=== PATIENT | female | born 1980 | race Caucasian/White ===

== ENCOUNTER 2016-09-07 18:12 | Outpatient (CLI) | payer OTHER | END 2016-09-07 18:13 | disposition critical access hospital (66) | LOC: EMS 18:12 | PROVIDERS: ATTEND Surgery | DX: M54.9 Dorsalgia, unspecified (principal) | CPT/HCPCS: A0425; A0427 ==

== ENCOUNTER 2016-09-07 18:46 | Emergency (ER) | payer OTHER ==
[2016-09-07] MEDS ORDERED: DEXAMETHASONE 10 MG/ML VIAL IVP STA (20:34)
[2016-09-07] MEDS ORDERED: KETOROLAC 60 MG/2 ML VIAL IVP STA (20:34)
[2016-09-07] MEDS ORDERED: diazePAM INJ 5 MG/ML SYRINGE IVP STA (20:35)
[2016-09-07] MEDS ORDERED: DEXAMETHASONE 10 MG/ML VIAL ONE (20:47)
[2016-09-07] MEDS ORDERED: KETOROLAC 30 MG/ML VIAL ONE (20:47)
[2016-09-07] MEDS ORDERED: diazePAM INJ 5 MG/ML SYRINGE ONE (20:47)
[2016-09-07] MEDS ORDERED: HYDROmorphone 1 MG/ML SYRINGE IVP STA (21:23)
[2016-09-07] MEDS ORDERED: HYDROmorphone 1 MG/ML SYRINGE ONE (21:35)
[2016-09-07] MEDS ORDERED: oxyCODONE/ACET 5/325 Prepack 4 PO STA (22:01)
--- NOTE | 2016-09-07 22:03 | ED Physician Documentation ---
PD HPI BACK PAIN - Stated complaint Stated Complaint: BACK PAIN - Chief complaint Chief Complaint: Back Pain - History obtained from History obtained from: Patient - History of Present Illness Timing - onset: Today (just prior to arrival.) Location: Lower Quality: Pain Associated symptoms: No: Fever, Weakness, Numbness, Incontinent of urine - Treatment prior to arrival Treatment prior to arrival: Medics administered fentanyl 100 g IV. - Additional information Additional information: The patient is a 35-year-old female who presents with low back pain that started suddenly today after bending over. The pain was quite severe, prompting her to call 911. She reports a similar episode occurring 3 days ago, but resolving spontaneously. She also reports history of similar symptoms about 12 years ago, but not this bad. She denies fever, numbness, weakness, or urinary incontinence. Medics administered fentanyl 100 g IV prior to arrival, and that has decreased the patient's severity of pain. Past history is significant for right hip surgery 6 weeks ago. Review of Systems Constitutional: denies: Fever Nose: denies: Congestion Throat: denies: Sore throat Cardiac: denies: Chest pain / pressure Respiratory: denies: Dyspnea, Cough GI: denies: Abdominal Pain, Nausea, Vomiting : denies: Dysuria, Incontinent Skin: denies: Rash Musculoskeletal: reports: Back pain. denies: Neck pain Neurologic: denies: Focal weakness, Numbness, Headache PD PAST MEDICAL HISTORY - Past Medical History Past Medical History: Yes Cardiovascular: None Respiratory: None Neuro: None Endocrine/Autoimmune: HyPOthyroidism - Past Surgical History Past Surgical History: Yes Ortho: Other (Right hip surgery, involving the labral head.) - Present Medications Home Medications: Ambulatory Orders Medication Instructions Recorded Confirmed Cyclobenzaprine [Flexeril] 10 mg PO TID PRN #20 tablet 09/07/16 HYDROcod/ACETAM 5/325 [[place] 5/325] 1 - 2 ea PO Q6H PRN #20 tablet 09/07/16 Levothyroxine Sodium 125 mcg PO DAILY 09/07/16 09/07/16 Trazodone HCl 50 mg PO DAILY 09/07/16 09/07/16 - Allergies Allergies/Adverse Reactions: Allergies Allergy/AdvReac Type Severity Reaction Status Date / Time Penicillins Allergy Unknown Verified 09/07/16 18:53 Sulfa (Sulfonamide Allergy Unknown Verified 09/07/16 18:53 Antibiotics) - Social History Does the pt smoke?: No Smoking Status: Never smoker PD ED PE NORMAL - Vitals Vital signs reviewed: Yes (normal) - General General: Alert and oriented X 3, Well developed/nourished - HEENT HEENT: Atraumatic, EOMI, Pharynx benign - Neck Neck: No bony TTP, No adenopathy, No JVD - Cardiac Cardiac: RRR, No murmur - Respiratory Respiratory: No respiratory distress, Clear bilaterally - Abdomen Abdomen: Soft, Non tender - Back Back: No CVA TTP, Other (Tenderness to palpation in the lower lumbar region, more on the right than the left. No tenderness to palpation along the spinous processes.) - Derm Derm: No rash - Extremities Extremities: No edema, No calf tenderness / cord - Neuro Neuro: Alert and oriented X 3, No motor deficit, No sensory deficit Results - Vitals Vitals: Oxygen O2 Source Room air PD MEDICAL DECISION MAKING - ED course Complexity details: reviewed results, re-evaluated patient, considered differential, d/w patient, d/w family ED course: The patient's presentation is significant for low back strain. There is no clinical evidence to suggest epidural abscess, cauda equina syndrome, and I doubt spinal stenosis. Treatment in the emergency department included administration of ketorolac 30 mg IV, diazepam 5 mg IV, and dexamethasone 10 mg IV. Subsequently hydromorphone 1 mg was administered IV. At the time of discharge the patient's pain is significantly improved. She is being discharged with prescriptions for Flexeril and for Vicodin, 20 tablets. I discussed with her and family members symptomatic treatment, outpatient follow- up, as well as potentially worrisome signs or symptoms that should prompt reevaluation in the emergency department. Departure - Departure Disposition: 01 Home, Self Care Clinical Impression: Low back pain Qualifiers: Chronicity: acute Back pain laterality: bilateral Sciatica presence: without sciatica Qualified Code(s): M54.5 - Low back pain Condition: Stable Instructions: ED Low Back Pain Injury Follow-Up: Isma Matos MD [Primary Care Provider] - Prescriptions: Cyclobenzaprine [Flexeril] 10 mg PO TID PRN #20 tablet PRN Reason: Spasms HYDROcod/ACETAM 5/325 [[place] 5/325] 1 - 2 ea PO Q6H PRN #20 tablet PRN Reason: Pain Comments: Apply ice pack to your lower back intermittently for the next 3 or 4 days. You can use ibuprofen, up to 800 mg 3 times daily for the anti-inflammatory effect. You can use Vicodin as prescribed if needed for pain. You can use Flexeril as prescribed if needed for muscle spasms. Let pain be your guide to activity level. Follow-up with your primary physician. Call to schedule the next available appointment. Return to the emergency department if you develop increasing back pain, fever, numbness or weakness, urinary incontinence, or otherwise worsening symptoms. Discharge Date/Time: 09/07/16 22:31
[2016-09-07] MEDS ORDERED: oxyCODONE/ACET 5/325 Prepack 4 PO ONE (22:15)
[2016-09-07 22:32] VITALS: BP 107/68
== END 2016-09-07 22:31 | disposition home or self-care (01) ==
LOC: EDUNIT# → ED 18:46
DX: M54.5 Low back pain (principal)
CPT/HCPCS: 96374; 96375; 99283; 99284; J1170

== ENCOUNTER 2018-03-10 13:32 | Emergency (ER) | payer OTHER ==
[2018-03-10] MEDS ORDERED: DEXAMETHASONE 10 MG/ML VIAL PO STA (14:22)
[2018-03-10] MEDS ORDERED: HYDROmorphone 1 MG/ML CARPUJECT IM STA (14:22)
[2018-03-10] MEDS ORDERED: PROMETHAZINE 25 MG/1 ML VIAL IM STA (14:22)
--- NOTE | 2018-03-10 14:23 | ED Physician Documentation ---
PD HPI BACK PAIN - Stated complaint Stated Complaint: LOW BACK PX - Chief complaint Chief Complaint: Back Pain - History obtained from History obtained from: Patient - History of Present Illness Timing - onset: How many weeks ago (1) Timing - details: Still present Location: Lower Quality: Pain Worsened by: Movement, Twisting Similar symptoms before: Diagnosis (History of a similar episode 1 1/2 years ago.) - Additional information Additional information: The patient is a 37-year-old female with a history of suspected autoimmune arthritis, who presents with low back pain that has been ongoing for the past week. It became worse today after she felt a popping in her lower back when getting out of bed this morning. She denies any specific injury. The pain is worse with walking or with movement. She denies fever, urinary incontinence, numbness or weakness. Review of her medical records reveals emergency department visit with similar symptoms in September 2016. Review of Systems Constitutional: denies: Fever Nose: denies: Congestion Throat: denies: Sore throat Cardiac: denies: Chest pain / pressure Respiratory: denies: Dyspnea, Cough GI: denies: Abdominal Pain, Nausea, Vomiting : denies: Dysuria, Incontinent Skin: denies: Rash Musculoskeletal: reports: Back pain. denies: Extremity pain Neurologic: denies: Focal weakness, Numbness, Headache PD PAST MEDICAL HISTORY - Past Medical History Past Medical History: Yes Cardiovascular: None, High cholesterol Respiratory: None Endocrine/Autoimmune: HyPOthyroidism, Other Musculoskeletal: Fibromyalgia, Chronic back pain Other Past Medical History: autoimmune arthritis, hashimotos arthritis, herniated disc - Past Surgical History Past Surgical History: Yes Ortho: Other - Present Medications Home Medications: Ambulatory Orders Medication Instructions Recorded Confirmed Levothyroxine Sodium 100 mcg PO DAILY 09/07/16 09/07/16 Trazodone HCl 25 mg PO DAILY 09/07/16 09/07/16 Cyclobenzaprine [Flexeril] 10 mg PO TID PRN #20 tablet 03/10/18 Hydrocodone/Acetaminophen 1 - 2 each PO Q6H PRN #14 tablet 03/10/18 [Hydrocodon-Acetaminophen 5-325] traMADol [Ultram] 50 mg PO Q4-6H 03/10/18 03/10/18 - Allergies Allergies/Adverse Reactions: Allergies Allergy/AdvReac Type Severity Reaction Status Date / Time etodolac Allergy Rash Verified 03/10/18 13:39 Penicillins Allergy Unknown Verified 09/07/16 18:53 pregabalin [From Lyrica] Allergy Edema Verified 03/10/18 13:39 Sulfa (Sulfonamide Allergy Unknown Verified 09/07/16 18:53 Antibiotics) - Social History Does the pt smoke?: No Smoking Status: Never smoker Does the pt drink ETOH?: No Does the pt have substance abuse?: No - Immunizations Immunizations are current?: Yes PD ED PE NORMAL - Vitals Vital signs reviewed: Yes (Normal) - General General: Alert and oriented X 3, Well developed/nourished - HEENT HEENT: Atraumatic - Neck Neck: No bony TTP - Cardiac Cardiac: RRR - Respiratory Respiratory: No respiratory distress, Clear bilaterally - Abdomen Abdomen: Soft, Non tender - Back Back: No CVA TTP, Other (Tenderness to palpation in the paralumbar musculature bilaterally, without tenderness to palpation along the spinous processes.) - Derm Derm: No rash - Extremities Extremities: No edema, No calf tenderness / cord, Other (Straight leg raise test is negative bilaterally.) - Neuro Neuro: Alert and oriented X 3, No motor deficit, No sensory deficit, Other (Deep tendon reflexes are 2+ and equal bilaterally at the patellar and Achilles tendons.) Results - Vitals Vitals: Oxygen O2 Source Room air PD MEDICAL DECISION MAKING - ED course Complexity details: reviewed old records, re-evaluated patient, considered differential, d/w patient ED course: The patient's presentation is most consistent with acute lumbar strain. There is no clinical evidence to suggest epidural abscess, cauda equina syndrome, or spinal stenosis. Treatment in the emergency department included administration of dexamethasone 10 mg orally, hydromorphone 1 mg IM, and Phenergan 12.5 mg IM. Her pain improved with the above treatment. She is being discharged with prescriptions for Flexeril, and for Vicodin, tablets. I discussed with her the expected course of illness, symptomatic treatment and outpatient follow-up, as well as potentially worrisome signs or symptoms that should prompt reevaluation in the emergency department. Departure - Departure Disposition: 01 Home, Self Care Clinical Impression: Back pain Qualifiers: Back pain location: low back pain Chronicity: acute Back pain laterality: bilateral Sciatica presence: without sciatica Qualified Code(s): M54.5 - Low back pain Condition: Stable Instructions: ED Low Back Pain Injury Follow-Up: Isma Matos MD [Primary Care Provider] - Prescriptions: Cyclobenzaprine [Flexeril] 10 mg PO TID PRN #20 tablet PRN Reason: Spasms Hydrocodone/Acetaminophen [Hydrocodon-Acetaminophen 5-325] 1 - 2 each PO Q6H PRN #14 tablet PRN Reason: pain Comments: Apply ice pack to your lower back intermittently for the next 3 or 4 days. You can use ibuprofen, up to 800 mg 3 times daily for its anti-inflammatory effect. You can use Flexeril if needed for muscle spasms. You can use Vicodin as prescribed if needed for pain. Let pain be your guide to activity level. Follow-up with your primary physician within 2 weeks. Call to schedule an appointment. Return to the emergency department if you develop increasing pain, numbness or weakness, urinary incontinence, or otherwise worsening symptoms. Discharge Date/Time: 03/10/18 15:24
[2018-03-10 15:24] VITALS: BP 105/70
== END 2018-03-10 15:24 | disposition home or self-care (01) ==
LOC: ED 13:32
DX: M54.5 Low back pain (principal); E78.00 Pure hypercholesterolemia, unspecified
CPT/HCPCS: 96372; 99283; J1170

== ENCOUNTER 2018-04-08 10:17 | Outpatient (CLI) | payer OTHER ==
--- NOTE | 2018-04-09 14:59 | MRI Report ---
Reason: LOW BACK PAIN,SCIATICA,LEG WEAKNESS,PARTIAL FOOT D Procedure Date: 04/08/2018 Accession Number: [id number] / [id number] Procedure: MRI - Lumbar Spine W/O CPT Code: FULL RESULT: EXAM: MRI LUMBAR SPINE WITHOUT CONTRAST EXAM DATE: 04/08/2018 10:37 AM. CLINICAL HISTORY: LOW BACK PAIN,SCIATICA,LEG WEAKNESS,PARTIAL FOOT D. COMPARISON: None. TECHNIQUE: Multiplanar, multisequence T1-weighted and fluid-sensitive sequences of the lumbar spine from T12 to S1 without contrast. Other: None. FINDINGS: Spinal Canal: The conus terminates at T12-L1. The conus medullaris and cauda equina are unremarkable. Alignment: No scoliosis or spondylolisthesis. Bone Marrow: Five [id number] lumbar vertebral bodies are assumed. No gross fractures or bone lesions. No bone marrow replacement. Rounded 13 mm typical hemangioma in the right lateral L2 vertebrae. Few small focus of focal T1 hyperintense marrow fat in the superior L3, left inferior L4 vertebrae. Disk Levels/Facets: T12-L1: Disk desiccation and posterior central annular fissure. No significant canal or foraminal narrowing. L1-L2: Unremarkable. L2-L3: Unremarkable. L3-L4: Unremarkable. L4-L5: Unremarkable. L5-S1: Unremarkable. Musculature: Normal. No edema or fatty atrophy. Other: The partially visualized retroperitoneum is unremarkable. IMPRESSION: Minimal degenerative changes at T12-L1. Otherwise unremarkable. Comment: The following findings are so common in adults without low back pain that while we report their presence, they must be interpreted with caution and in the context of the clinical situation. (Reference Susyvik et al, Spine 2001) Prevalence of findings in patients without low back pain: Disk degeneration (any evidence): 92% Disk desiccation/T2 signal loss: 83% Disk height loss: 56% Disk bulge: 64% Disk protrusion: 32% Annular tear/high intensity zone: 38% RADIA
== END 2018-04-08 10:18 | disposition home or self-care (01) ==
LOC: DI 10:17
PROVIDERS: ATTEND Family Medicine
DX: M51.15 Intervertebral disc disorders with radiculopathy, thoracolumbar region (principal); M21.379 Foot drop, unspecified foot
CPT/HCPCS: 72148

== ENCOUNTER 2018-08-04 19:34 | Outpatient (CLI) | payer OTHER ==
--- NOTE | 2018-08-05 00:05 | Ultrasound Report ---
Reason: MURPHYS POSITIVE,NAUSEA,LLQ PAIN,ENDOMETRIOSIS, UN Procedure Date: 08/04/2018 Accession Number: [id number] / [id number] Procedure: US - Abdomen Complete CPT Code: FULL RESULT: EXAM: ABDOMEN ULTRASOUND EXAM DATE: 08/04/2018 08:50 PM. CLINICAL HISTORY: MURPHYS POSITIVE,NAUSEA,LLQ PAIN,ENDOMETRIOSIS, UN. COMPARISON: None. TECHNIQUE: Real-time scanning was performed with static images obtained. FINDINGS: Liver: Normal in size and echotexture. 17.4 there is a small echogenic focus in the caudate lobe which measures 8 mm x 7 mm x 8 mm. This is close to the inferior vena cava. This may represent a small hemangioma. Cm. Main portal vein flow: Hepatopetal. Gallbladder: Normal. No stones, wall thickening, or sonographic Araujo's sign. Biliary System: Common bile duct measures 2 mm. No intrahepatic or extrahepatic ductal dilatation. Pancreas: Visualized portion is unremarkable. Kidneys: Right: 10.3 cm longitudinally. Normal. No contour-deforming mass, stones, or hydronephrosis. Left: 10.3 cm longitudinally. Normal. No contour-deforming mass, stones, or hydronephrosis. Spleen: 11.4 x 4.4 x 9.1 cm. Normal in size and echotexture. Aorta and Inferior Vena Cava: Unremarkable. Other: None. IMPRESSION: 1. No definite findings to explain clinical symptoms. 2. Small echogenic focus in the caudate lobe of the liver likely representing a small hemangioma. RADIA
== END 2018-08-04 19:35 | disposition home or self-care (01) ==
LOC: DI 19:34
PROVIDERS: ATTEND Naturopath
DX: R10.32 Left lower quadrant pain (principal); R11.0 Nausea; R14.0 Abdominal distension (gaseous); R19.8 Other specified symptoms and signs involving the digestive system and abdomen; N80.9 Endometriosis, unspecified
CPT/HCPCS: 76700

== ENCOUNTER 2018-08-21 11:46 | Outpatient (CLI) | payer OTHER ==
[2018-08-21 12:06] LABS: BILIRUBIN,URINE NEGATIVE (NEGATIVE); GLUCOSE, URINE (UA) NEGATIVE (NEGATIVE); KETONES,URINE (UA) NEGATIVE (NEGATIVE); LEUKOCYTE ESTERASE, URINE NEGATIVE (NEGATIVE); NITRITE,URINE NEGATIVE (NEGATIVE); OCCULT BLOOD,URINE NEGATIVE (NEGATIVE); PROTEIN,URINE NEGATIVE (NEGATIVE); UROBILINOGEN,URINE 0.2 (NORMAL) E.U./dL (NORMAL)
[2018-08-21 12:11] LABS: CLARITY,URINE CLEAR (CLEAR)
== END 2018-08-21 11:47 | disposition home or self-care (01) ==
LOC: LAB 11:46
PROVIDERS: ATTEND Urology
DX: R35.0 Frequency of micturition (principal)
CPT/HCPCS: 81001; 81003

== ENCOUNTER 2019-06-29 16:56 | Outpatient (CLI) | payer OTHER ==
--- NOTE | 2019-06-29 17:51 | XRAY Report ---
Reason: TACHYCARDIA, SOB Procedure Date: 06/29/2019 Accession Number: [id number] / [id number] Procedure: XR - Chest 2 View X-Ray CPT Code: 43060 Addended Final Report FULL RESULT: EXAM: CHEST RADIOGRAPHY EXAM DATE: 06/29/2019 05:14 PM. CLINICAL HISTORY: TACHYCARDIA, SOB. COMPARISON: None. TECHNIQUE: 2 views. FINDINGS: Lungs/Pleura: No focal lung consolidation. No pleural effusion. No pneumothorax. Mediastinum: Cardiac silhouette size appears unremarkable. Other: Osseous structures and upper abdomen appear unremarkable. IMPRESSION: No focal lung consolidation or pleural effusions. RADIA The call report notification system was initiated by Dr. Mitchell Aguilra at 05:50 PM on 06/29/2019. ADDENDUM: 06/29/19 17:56 assistant auto center manager calling Negative result to provider at 5:56 PM on 06/29/2019.
== END 2019-06-29 16:57 | disposition home or self-care (01) ==
LOC: DI 16:56
PROVIDERS: ATTEND Nurse Practitioner Psychiatric/Mental Health
DX: R00.0 Tachycardia, unspecified (principal); R06.02 Shortness of breath; R05 Cough; J06.9 Acute upper respiratory infection, unspecified
CPT/HCPCS: 71046

== ENCOUNTER 2019-06-30 16:41 | Emergency (ER) | payer OTHER ==
[2019-06-30] MEDS ORDERED: ALBUTEROL NEB 2.5 MG/3 ML INH STA (17:04)
--- NOTE | 2019-06-30 17:06 | ED Physician Documentation ---
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 She noted some high heart rates and borderline pulse oximetry to 93% at home. No history of DVT or PE but she was referred in to rule that out. Chest x-ray done as an outpatient was negative yesterday as well as a coronavirus test.) Review of Systems Constitutional: denies: Fever, Chills Throat: reports: Reviewed and negative Cardiac: reports: Reviewed and negative Respiratory: reports: Reviewed and negative PD PAST MEDICAL HISTORY - Past Medical History Cardiovascular: None, High cholesterol Respiratory: None Endocrine/Autoimmune: HyPOthyroidism, Other Musculoskeletal: Fibromyalgia, Chronic back pain - Past Surgical History Past Surgical History: Yes Ortho: Other - Present Medications Home Medications: Ambulatory Orders Medication Instructions Recorded Confirmed Levothyroxine Sodium 112 mcg PO DAILY 09/07/16 09/07/16 Trazodone HCl 25 mg PO DAILY 09/07/16 09/07/16 Cyclobenzaprine [Flexeril] 10 mg PO TID PRN #20 tablet 03/10/18 Hydrocodone/Acetaminophen 1 - 2 each PO Q6H PRN #14 tablet 03/10/18 [Hydrocodon-Acetaminophen 5-325] traMADol [Ultram] 50 mg PO Q4-6H 03/10/18 03/10/18 Albuterol 2.5 mg INH Q4H PRN #30 neb 06/30/19 Amitriptyline [Elavil] 25 mg PO DAILY 06/30/19 06/30/19 Baclofen 10 mg PO TID 06/30/19 06/30/19 OXcarbazepine [Trileptal] 300 mg PO BID 06/30/19 06/30/19 diazePAM [Diazepam] 5 - 10 mg PO PRN PRN 06/30/19 06/30/19 guaiFENesin/CODEINE [Robitussin AC] 5 - 10 ml PO Q6H PRN #120 ml 06/30/19 - Allergies Allergies/Adverse Reactions: Allergies Allergy/AdvReac Type Severity Reaction Status Date / Time etodolac Allergy Rash Verified 06/30/19 16:44 nabumetone Allergy Unknown Verified 06/30/19 17:20 nortriptyline Allergy Rash Verified 06/30/19 17:20 Penicillins Allergy Unknown Verified 06/30/19 16:44 pregabalin [From Lyrica] Allergy Edema Verified 06/30/19 16:44 Sulfa (Sulfonamide Allergy Unknown Verified 06/30/19 16:44 Antibiotics) - Social History Does the pt smoke?: No Smoking Status: Never smoker Does the pt drink ETOH?: No Does the pt have substance abuse?: No - Immunizations Immunizations are current?: Yes PD ED PE NORMAL - Vitals Vital signs reviewed: Yes - General General: Alert and oriented X 3, No acute distress - Neck Neck: Supple, no meningeal sign, No bony TTP - Cardiac Cardiac: RRR, No murmur - Respiratory Respiratory: No respiratory distress, Other (Mild expiratory wheezing with occasional bronchitic coughing) - Extremities Extremities: No edema, No calf tenderness / cord Results - Vitals Vitals: Vital Signs - 24 hr 06/30/19 06/30/19 16:44 17:20 Temperature 36.9 C Heart Rate 104 H 96 Respiratory 20 16 Rate Blood Pressure 125/98 H O2 Saturation 100 Oxygen O2 Source Room air - EKG (time done) 1738 Rate: Rate (enter#) (90) Rhythm: NSR [place]: Normal Intervals: Normal [place] QRS: Normal Ischemia: Normal ST segments Computer interpretation: Agree with computer - Labs Labs: Laboratory Tests 06/30/19 06/30/19 06/30/19 17:15 17:15 17:15 WBC 7.4 RBC 4.54 Hgb 13.6 Hct 41.2 MCV 90.7 MCH 30.0 MCHC 33.0 RDW 13.8 Plt Count 285 MPV 9.9 Neut # (Auto) 3.7 Lymph # (Auto) 2.7 [place] # (Auto) 0.7 Eos # (Auto) 0.3 Baso # (Auto) 0.1 Absolute Nucleated RBC 0.00 Nucleated RBC % 0.0 D-Dimer 244.6 Sodium 134 L Potassium 3.7 Chloride 101 Carbon Dioxide 20 L Anion Gap 13.0 BUN 15 Creatinine 0.9 Estimated GFR (MDRD) 70 L Glucose 95 Calcium 9.1 PD MEDICAL DECISION MAKING - ED course ED course: 38-year-old woman with what seems like viral bronchitis sent here for rule out for PE. She seems relatively low risk with no symptoms that would really make PE high risk and a d-dimer was done and negative, with a low pretest probability I think this adequately rules her out. Departure - Departure Disposition: 01 Home, Self Care Clinical Impression: Viral bronchitis Condition: Good Record reviewed to determine appropriate education?: Yes Instructions: ED Bronchitis Asthmatic Prescriptions: Albuterol 2.5 mg INH Q4H PRN #30 neb PRN Reason: Wheezing guaiFENesin/CODEINE [Robitussin AC] 5 - 10 ml PO Q6H PRN #120 ml PRN Reason: Cough Comments: Return for new or worsening symptoms. Follow-up with your doctor next week. You can let them know that we did a d-dimer and it was negative, given the low pretest probability this rules out pulmonary embolism.
[2019-06-30 17:19] LABS: BASOPHILS # (AUTO) 0.1 10^3/uL (0.0-0.1); BASOPHILS % (AUTO) 0.7 %; EOSINOPHILS # (AUTO) 0.3 10^3/uL (0.0-0.7); EOSINOPHILS % (AUTO) 3.4 %; HGB - HEMOGLOBIN 13.6 g/dL (12.0-16.0); LYMPHOCYTES # (AUTO) 2.7 10^3/uL (1.5-3.5); LYMPHOCYTES % (AUTO) 35.8 %; MEAN CORPUSCULAR VOLUME 90.7 fL (81.0-99.0); MEAN PLATELET VOLUME 9.9 fL (7.9-10.8); MONOCYTES # (AUTO) 0.7 10^3/uL (0.0-1.0); MONOCYTES % (AUTO) 9.4 %; NEUTROPHILS # (AUTO) 3.7 10^3/uL (1.5-6.6); NEUTROPHILS % (AUTO) 50.4 %; PLT - PLATELET COUNT 285 10^3/uL (130-450); RED BLOOD COUNT 4.54 10^6/uL (4.20-5.40); RED CELL DISTRIBUTION WIDTH 13.8 % (12.0-15.0); WHITE BLOOD COUNT 7.4 x10^3/uL (4.8-10.8)
[2019-06-30 17:28] LABS: CALCIUM 9.1 mg/dL (8.5-10.3); CREATININE 0.9 mg/dL (0.4-1.0)
[2019-06-30 18:05] VITALS: BP 115/83
== END 2019-06-30 17:55 | disposition home or self-care (01) ==
LOC: ED 16:41
DX: J20.8 Acute bronchitis due to other specified organisms (principal); B97.89 Other viral agents as the cause of diseases classified elsewhere; M79.7 Fibromyalgia
CPT/HCPCS: 36415; 80048; 85025; 85379; 93005; 94640; 99282; 99283

== ENCOUNTER 2019-09-14 10:37 | Outpatient (CLI) | payer OTHER ==
[2019-09-14 15:33] LABS: BASOPHILS # (AUTO) 0.1 10^3/uL (0.0-0.1); BASOPHILS % (AUTO) 1.1 %; EOSINOPHILS # (AUTO) 0.1 10^3/uL (0.0-0.7); EOSINOPHILS % (AUTO) 2.2 %; HGB - HEMOGLOBIN 13.5 g/dL (12.0-16.0); LYMPHOCYTES # (AUTO) 1.8 10^3/uL (1.5-3.5); LYMPHOCYTES % (AUTO) 39.8 %; MEAN CORPUSCULAR HEMOGLOBIN 30.5 pg (27.0-31.0); MEAN CORPUSCULAR HGB CONC 32.7 g/dL (32.0-36.0); MEAN CORPUSCULAR VOLUME 93.2 fL (81.0-99.0); MEAN PLATELET VOLUME 10.5 fL (7.9-10.8); MONOCYTES # (AUTO) 0.4 10^3/uL (0.0-1.0); MONOCYTES % (AUTO) 8.4 %; NEUTROPHILS # (AUTO) 2.2 10^3/uL (1.5-6.6); NEUTROPHILS % (AUTO) 48.3 %; PLT - PLATELET COUNT 294 10^3/uL (130-450); RED BLOOD COUNT 4.43 10^6/uL (4.20-5.40); RED CELL DISTRIBUTION WIDTH 13.3 % (12.0-15.0); WHITE BLOOD COUNT 4.6 x10^3/uL (4.8-10.8)
[2019-09-14 15:49] LABS: ALBUMIN 4.4 g/dL (3.2-5.5); ALBUMIN/GLOBULIN RATIO 1.2 (1.0-2.2); ALKALINE PHOSPHATASE 87 IU/L (42-121); ALT ALANINE AMINOTRANSFERASE < 10 IU/L (10-60); AST ASPARTATE AMINOTRANSFERASE 14 IU/L (10-42); BILIRUBIN,TOTAL 0.5 mg/dL (0.2-1.0); BUN - BLOOD UREA NITROGEN 11 mg/dL (6-20); CALCIUM 9.5 mg/dL (8.5-10.3); CARBON DIOXIDE - CO2 24 mmol/L (21-32); CHLORIDE 104 mmol/L (101-111); CREATININE 0.7 mg/dL (0.4-1.0); GLUCOSE 91 mg/dL (70-100); SODIUM 138 mmol/L (135-145); TOTAL PROTEIN 8.1 g/dL (6.7-8.2)
[2019-09-14 16:11] LABS: CRP - C-REACTIVE PROTEIN < 1.0 mg/dL (0-1.0)
== END 2019-09-14 10:38 | disposition home or self-care (01) ==
LOC: COV 10:37
PROVIDERS: ATTEND Internal Medicine Gastroenterology
DX: Z01.812 Encounter for preprocedural laboratory examination (principal); Z20.828 Contact with and (suspected) exposure to other viral communicable diseases
CPT/HCPCS: 36415; 80053; 81376; 81382; 81599; 82607; 82784; 83516; 83630; 83993; 85025; 86140

== ENCOUNTER 2019-12-19 16:31 | Outpatient (CLI) | payer OTHER | END 2019-12-19 16:32 | disposition home or self-care (01) | LOC: LAB.S 16:31 | PROVIDERS: ATTEND Psychiatry & Neurology Neurology | DX: Z53.9 Procedure and treatment not carried out, unspecified reason (principal) ==

== ENCOUNTER 2020-01-02 10:37 | Outpatient (CLI) | payer OTHER ==
--- NOTE | 2020-01-04 13:17 | Mammography Report ---
BILATERAL DIGITAL SCREENING MAMMOGRAM 3D/2D: 01/02/2020 CLINICAL: Baseline exam. Routine screening. No prior exams were available for comparison. The tissue of both breasts is heterogeneously dense. T his may lower the sensitivity of mammography. There is a 0.4 cm mass in the right breast at 6 o'clock middle depth. No other significant masses, calcifications, or other findings are seen in either breast. IMPRESSION: INCOMPLETE: NEEDS ADDITIONAL IMAGING EVALUATION The 0.4 cm mass in the right breast is indeterminate. Additional views with possible ultrasound are recommended. This exam was interpreted at Station ID: [id number]. NOTE: For mammograms, a report in lay terms will be sent to the patient. Approximately 15% of breast malignancies will not be visualized mammographically. In the management of a palpable breast mass, a negative mammogram must not discourage biopsy of a clinically suspicious lesion. Electronically Signed By: Binu Arthur M.D., jr/ekaterina:01/02/2020 11:49:56 ACR BI-RADS Category 0: Incomplete 3340F PARENCHYMAL PATTERN: (D) - The breast(s) demonstrate(s) heterogeneously dense fibroglandular parjessicay ma. BI-RADS CATEGORY: (0) - 0 RECOMMENDATION: (ADDMAM) - Recommend additional mammographic views. [id number] Immediate follow-up LATERALITY: (B)
== END 2020-01-02 10:38 | disposition home or self-care (01) ==
LOC: DI 10:37
PROVIDERS: ATTEND Naturopath
DX: Z12.31 Encounter for screening mammogram for malignant neoplasm of breast (principal); N63.15 Unspecified lump in the right breast, overlapping quadrants
CPT/HCPCS: 77063; 77067; 81599

== ENCOUNTER 2020-01-02 11:15 | Outpatient (CLI) | payer OTHER | END 2020-01-02 11:16 | disposition home or self-care (01) | LOC: LAB 11:15 | PROVIDERS: ATTEND Psychiatry & Neurology Neurology | DX: N63.15 Unspecified lump in the right breast, overlapping quadrants (principal) | CPT/HCPCS: 81599 ==

== ENCOUNTER 2020-02-21 08:28 | Outpatient (CLI) | payer OTHER ==
--- NOTE | 2020-02-22 07:41 | Mammography Report ---
UNILATERAL RIGHT DIGITAL DIAGNOSTIC MAMMOGRAM 3D/2D: 02/21/2020 CLINICAL: Patient returns for additional imaging over a suspected mass in the right breast. Comparison is made to exam dated: 01/02/2020 mammogram - [facility]. The tissue o f right breast is heterogeneously dense. This may lower the sensitivity of mammography. There is a new 0.5 cm asymmetry with an indistinct margin in the right breast at 7 o'clock middle dep th 9 cm from the nipple. This is seen in additional views. No other significant masses or calcifications are seen in the breast. IMPRESSION: INCOMPLETE: NEEDS ADDITIONAL IMAGING EVALUATION The new 0.5 cm asymmetry in the right breast is indeterminate. An ultrasound is recommended. This exam was interpreted at Station ID: [id number]. NOTE: For mammograms, a report in lay terms will be sent to the patient. Approximately 15% of breast malignancies will not be visualized mammographically. In the management of a palpable breast mass, a negative mammogram must not discourage biopsy of a clinically suspicious lesion. Electronically Signed By: Ronald Hernandez acr/:02/21/2020 09:48:59 ACR BI-RADS Category 0: Incomplete 3340F PARENCHYMAL PATTERN: (D) - The breast(s) demonstrate(s) heterogeneously dense fibroglandular zulma harding. BI-RADS CATEGORY: (0) - 0 Ultrasound [id number] Immediate follow-up LATERALITY: (B)
--- NOTE | 2020-02-22 07:41 | Ultrasound Report ---
LIMITED ULTRASOUND OF RIGHT BREAST: 02/21/2020 CLINICAL: Patient returns today to evaluate a density in the right breast. No prior exams were available for comparison. Ultrasound of the right breast 9 o'clock region was performed. [place] scale images of the real-time ex amination were reviewed. IMPRESSION: PROBABLY BENIGN There is no abnormality seen in the right breast to correspond with the mammography finding at 9 o'cl ock. A follow-up right mammogram and an ultrasound in 6 months is recommended to demonstrate stability of the mammographic finding. This exam was interpreted at Station ID: [id number]. Electronically Signed By: Ronald Hernandez acr/:02/21/2020 10:45:05 Ultrasound BI-RADS: 3 Probably benign BI-RADS CATEGORY: (3) - 3 Mammo and [place] [id number] 6 month follow-up LATERALITY: (R)
== END 2020-02-21 08:29 | disposition home or self-care (01) ==
LOC: DI 08:28
PROVIDERS: ATTEND Naturopath
DX: R92.2 Inconclusive mammogram (principal)

== ENCOUNTER 2020-02-26 12:43 | Outpatient (CLI) | payer OTHER ==
--- NOTE | 2020-02-27 10:11 | Ultrasound Report ---
LIMITED ULTRASOUND OF RIGHT BREAST: 02/26/2020 CLINICAL: Patient returns today to evaluate a focal asymmetry in the right breast. Comparison is made to exams dated: 02/21/2020 ultrasound, 02/21/2020 mammogram, and 01/02/2020 mammogr [facility]. Ultrasound of the right breast 2 o'clock and 7-8 o'clock regions was performed. There is a 0.6 cm x 0.6 cm x 0.3 cm oval cyst with a septated internal wall in the right breast at 2 o'clock middle depth 6 cm from the nipple. This oval cyst is anechoic. This correlates with mammogr aphy findings. There also is a 0.5 cm x 0.4 cm x 0.4 cm oval cyst in the right breast at 2 o'clock posterior depth 7 cm from the nipple. This oval cyst is hypoechoic. Additionally, there is a possible 0.3 cm x 0.4 cm x 0.2 cm lymph node in the right breast at 7 o'cloc k middle depth 5 cm from the nipple. This lymph node is hypoechoic with fatty hilum. This correlate s with mammography findings. IMPRESSION: PROBABLY BENIGN The 0.6 cm x 0.6 cm x 0.3 cm oval cyst in the right breast at 2 o'clock middle depth is consistent wi th a complicated cyst and is probably benign. The 0.5 cm x 0.4 cm x 0.4 cm oval cyst in the right breast at 2 o'clock posterior depth most likely i s a complicated cyst and is probably benign. The possible 0.3 cm x 0.4 cm x 0.2 cm lymph node in the right breast at 7 o'clock middle depth is pro bably benign. A follow-up right mammogram and an ultrasound in 6 months is recommended to demonstrate stability. F uture imaging is recommended as follows: 08/20/2020 right mammogram and an ultrasound. This exam was interpreted at Station ID: [id number]. Electronically Signed By: Isma hammond/ekaterina:02/26/2020 14:26:59 Ultrasound BI-RADS: 3 Probably benign BI-RADS CATEGORY: (3) - 3 Mammo and [place] [id number] 6 month follow-up LATERALITY: (R)
== END 2020-02-26 12:44 | disposition home or self-care (01) ==
LOC: DI 12:43
PROVIDERS: ATTEND Naturopath
DX: N60.11 Diffuse cystic mastopathy of right breast (principal)

== ENCOUNTER 2021-02-25 11:28 | Outpatient (CLI) | payer OTHER ==
--- NOTE | 2021-02-25 15:38 | Ultrasound Report ---
PROCEDURE: Head or Neck Soft Tissue INDICATIONS: AUTOIMMUNE THYROIDITIS, DYSPHAGIA TECHNIQUE: Real time scanning was performed of the neck region of interest, with image documentation . COMPARISON: None. FINDINGS: Right: Thyroid lobe measures 4.4 x 1.8 x 1.2 cm, and is heterogeneous in echotexture. Left: Thyroid lobe measures 3.9 x 1.5 x 1.3 cm, and is heterogeneous in echotexture. Isthmus: 0.5 cm No discrete nodule/mass is appreciated. IMPRESSION: 1. Heterogeneous echotexture of the bilateral thyroid lobes. Reviewed by: Diaz Be MD on 02/25/2021 3:37 PM PST Approved by: Diaz Be MD on 02/25/2021 3:37 PM PST Station ID: [id number]
== END 2021-02-25 11:29 | disposition home or self-care (01) ==
LOC: DI 11:28
PROVIDERS: ATTEND Naturopath
DX: E06.3 Autoimmune thyroiditis (principal); R13.10 Dysphagia, unspecified